=== PATIENT | female | born 1960 | race Two or more races ===

== ENCOUNTER 2017-02-07 03:26 | Emergency (ER) | payer MEDICARE, OTHER ==
[~2017-02-07] VITALS: Ht 162.6 cm; Wt 79.2 kg
[2017-02-07 03:32] VITALS: Ht 162.6 cm; Wt 79.2 kg
--- NOTE | 2017-02-07 04:28 | ERD ---
ER Documentation Chief Complaint Chief Complaint cough w/ chest congestion x 2 weeks,right breast.pain, body aches x 1 week HPI 56-year-old female presents emergency department for right-sided breast/chest pain cough, congestion for about 2 weeks. She also complains that she has generalized body aches for about a week. Denies headache, dizziness, blurry vision, changes in vision, neck pain, neck stiffness, difficulty swallowing, loss of appetite, difficulty breathing when lying flat, abdominal pain, nausea, vomiting, constipation, diarrhea, loss of bowel bladder control, urinary symptoms, changes in bowel bladder habits, recent travel, recent long travel, recent exposure to any illness, recent antibiotic use in the last 3 months, fever, chills, difficulty walking, trauma, injury, falls. Has past medical history of hypertension, hyperlipidemia, TIA. ROS All systems reviewed and are negative except as per history of present illness. Medications Home Meds Active Scripts Prednisone* (Prednisone*) 20 Mg Tab, 40 MG PO DAILY for 5 Days, TAB Prov:ARIAMARGARITABRADYSANTOSH Barnard 02/07/17 Acetaminophen* (Tylophen*) 500 Mg Capsule, 1 CAP PO Q6H Y for PAIN AND OR ELEVATED TEMP, #20 CAP Prov:ANATOLIYELIZABETHPAOLA 02/07/17 Albuterol Sulfate* (Proair HFA*) 8.5 Gm Hfa.aer.ad, 2 PUFF INH Q4, #1 INHALER Prov:ANATOLIYELIZABETHPAOLA 02/07/17 Azithromycin* (Zithromax*) 250 Mg Tablet, 250 MG PO .ZPACK DIRECTED, #6 TAB TAKE 500 MG (2 TABS) THE FIRST DAY THEN 250 MG (1 TAB) DAYS 2-5 Prov:ANATOLIYELIZABETHPAOLA 02/07/17 Allergies Allergies: Coded Allergies: No Known Allergy (Unverified , 02/07/17) PMhx/Soc History of Surgery: Yes (Vocal Cord Surg) Anesthesia Reaction: No Hx Neurological Disorder: No Hx Respiratory Disorders: No Hx Cardiac Disorders: Yes (HTN) Hx Psychiatric Problems: No Hx Miscellaneous Medical Probl: No Hx Alcohol Use: No Hx Substance Use: No Hx Tobacco Use: Yes (10 sticks/day) Smoking Status: Current every day smoker Physical Exam Vitals Vital Signs Date Time Temp Pulse Resp B/P Pulse Ox O2 Delivery O2 Flow Rate FiO2 02/07/17 03:32 98.8 74 20 162/82 98 Physical Exam Const: Well-appearing. Not in acute respiratory distress. Head: Atraumatic Eyes: Normal Conjunctiva. ENT: Normal External Ears, Nose and Mouth. Neck: Full range of motion..~ No meningismus. Resp: Clear to auscultation bilaterally. No crepitus. Cardio: Regular rate and rhythm, no murmurs Abd: Soft, non tender, non distended. Normal bowel sounds Skin: No petechiae or rashes. No vesicular lesions to chest and back. Examined with female vice president & general manager [employer] [place], Renee TERESA. Back: No midline or flank tenderness Ext: No cyanosis, or edema Neur: Awake and alert 4. No facial droop. Cranial nerves II through XII are intact. Romberg test is negative. No neurological deficits. Psych: Normal Mood and Affect Result Diagram: 02/07/1742402/07/17424 Results 24 hrs Laboratory Tests Test 02/07/17 04:25 White Blood Count 9.110^3/ul Red Blood Count 4.1310^6/ul Hemoglobin 12.6g/dl Hematocrit 36.2% Mean Corpuscular Volume 87.7fl Mean Corpuscular Hemoglobin 30.5pg Mean Corpuscular Hemoglobin Concent 34.8g/dl Red Cell Distribution Width 12.9% Platelet Count 69790^3/UL Mean Platelet Volume 10.1fl Neutrophils % 48.8% Lymphocytes % 41.7% Monocytes % 6.3% Eosinophils % 2.6% Basophils % 0.5% Nucleated Red Blood Cells % 0.0/100WBC Neutrophils # 4.510^3/ul Lymphocytes # 3.810^3/ul Monocytes # 0.610^3/ul Eosinophils # 0.210^3/ul Basophils # 0.110^3/ul Nucleated Red Blood Cells # 0.010^3/ul Prothrombin Time 13.1Sec Prothrombin Time Ratio 1.0 INR International Normalized Ratio 0.98 Activated Partial Thromboplast Time 28.1Sec Sodium Level 142mmol/L Potassium Level 3.5mmol/L Chloride Level 103mmol/L Carbon Dioxide Level 25mmol/L Anion Gap 18 Blood Urea Nitrogen 14mg/dl Creatinine 0.63mg/dl Glucose Level 100mg/dl Calcium Level 9.4mg/dl Total Bilirubin 0.2mg/dl Direct Bilirubin 0.00mg/dl Indirect Bilirubin 0.2mg/dl Aspartate Amino Transf (AST/SGOT) 26IU/L Alanine Aminotransferase (ALT/SGPT) 42IU/L Alkaline Phosphatase 65IU/L Troponin I < 0.012ng/ml Total Protein 7.4g/dl Albumin 4.5g/dl Globulin 2.90g/dl Albumin/Globulin Ratio 1.55 Amylase Level 88U/L Lipase 172U/L Procedures/MDM EKG: Normal sinus rhythm. No STEMI. Read by supervising physician, Dr. Joanne Stover. Chest x-ray: No evidence for acute cardiopulmonary disease. Blood works: Negative. Troponin: Negative. Differential: I have low suspicion for acute myocardial infarction, acute coronary syndrome, abdominal aortic aneurysm, shingles due to patient's presentation, description of pain, my physical examination, diagnostic test results Final diagnosis: Bronchitis. Prescription: Azithromycin. Prednisone. Pro-air. Tylenol. Follow-up with PCP in the next 3-4 days. Come back here in the emergency department for any new symptoms or any worsening symptoms. All questions and concerns are answered. Patient and family member verbalized understanding and agreed with the plan of care. Hemodynamically stable on discharge. Departure Diagnosis: Primary Impression: Acute bronchitis Condition: Stable Additional Instructions: Follow-up with PCP in the next 3-4 days. Come back here in the emergency department for any new symptoms or any worsening symptoms. All questions and concerns are answered. Patient and family member verbalized understanding and agreed with the plan of care. PAOLA SIMENTAL Feb 07, 2017 04:28
[2017-02-07 04:51] LABS: BASOPHIL # 0.1 10^3/ul (0.0-0.1); BASOPHILS % 0.5 % (0.0-2.0); EOSINOPHILS # 0.2 10^3/ul (0.0-0.5); EOSINOPHILS % 2.6 % (0.0-7.0); HEMATOCRIT 36.2 % (37.0-47.0); HEMOGLOBIN 12.6 g/dl (12.0-16.0); LYMPHOCYTES # 3.8 10^3/ul (0.8-2.9); LYMPHOCYTES % 41.7 % (15.0-51.0); MEAN CORPUSCULAR HEMOGLOBIN 30.5 pg (29.0-33.0); MEAN CORPUSCULAR HGB CONC 34.8 g/dl (32.0-37.0); MEAN CORPUSCULAR VOLUME 87.7 fl (82.0-101.0); MEAN PLATELET VOLUME 10.1 fl (7.4-10.4); MONOCYTE # 0.6 10^3/ul (0.3-0.9); MONOCYTES % 6.3 % (0.0-11.0); NEUTROPHIL # 4.5 10^3/ul (1.6-7.5); NEUTROPHILS % 48.8 % (39.0-77.0); PLATELET COUNT 283 10^3/UL (140-415); RED BLOOD COUNT 4.13 10^6/ul (4.20-5.40); RED CELL DISTRIBUTION WIDTH 12.9 % (11.5-14.5); WHITE BLOOD COUNT 9.1 10^3/ul (4.8-10.8)
--- NOTE | 2017-02-07 04:56 | RADRPT ---
PROCEDURE: XR Chest. CLINICAL INDICATION: Shortness of breath TECHNIQUE: PA and Lateral views of the chest were obtained. COMPARISON: There are no similar studies submitted for comparison. FINDINGS: There is mild cardiomegaly. The lungs are clear without evidence of infiltrate. There is no pleural effusion. No pneumothorax is identified. The osseous structures are intact. IMPRESSION: No evidence for acute cardiopulmonary disease. RPTAT: HIKT .Angelo Mello MD, MD Date Time Electronically viewed and signed by .Angelo Mello MD, MD on 02/07/2017 04:55 .T/
[2017-02-07 05:11] LABS: INR 0.98; PROTIME 13.1 Sec (11.9-14.9)
[2017-02-07 05:12] LABS: PARTIAL THROMBOPLASTIN TIME 28.1 Sec (25.0-35.0)
[2017-02-07 05:16] LABS: ALANINE AMINOTRANSFERASE 42 IU/L (13-69); ALBUMIN 4.5 g/dl (3.3-4.9); ALBUMIN/GLOBULIN RATIO 1.55; ALKALINE PHOSPHATASE 65 IU/L (42-121); AMYLASE 88 U/L (11-123); ANION GAP 18 (8-16); ASPARTATE AMINO TRANSFERASE 26 IU/L (15-46); BILIRUBIN,INDIRECT 0.2 mg/dl (0-1.1); BILIRUBIN,TOTAL 0.2 mg/dl (0.2-1.3); BLOOD UREA NITROGEN 14 mg/dl (7-20); CALCIUM 9.4 mg/dl (8.4-10.2); CARBON DIOXIDE 25 mmol/L (21-31); CHLORIDE 103 mmol/L (97-110); CREATININE 0.63 mg/dl (0.44-1.00); GLUCOSE 100 mg/dl (70-220); POTASSIUM 3.5 mmol/L (3.5-5.1); SODIUM 142 mmol/L (135-144); TOTAL PROTEIN 7.4 g/dl (6.1-8.1)
[2017-02-07 05:41] LABS: TROPONIN-I < 0.012 ng/ml (0.00-0.12)
[2017-02-07] MEDS ORDERED: ALBU8.5H3 INH (05:41)
[2017-02-07] MEDS ORDERED: ACET500C5 PO (05:41)
[2017-02-07] MEDS ORDERED: AZIT250T94 PO (05:41)
[2017-02-07] MEDS ORDERED: PRED20TA PO (05:42)
== END 2017-02-07 06:00 | disposition left against medical advice (07) ==
LOC: FTE 03:26
DX: J20.9 Acute bronchitis, unspecified (principal); I10 Essential (primary) hypertension; F17.210 Nicotine dependence, cigarettes, uncomplicated; R06.02 Shortness of breath
CPT/HCPCS: 36415; 71020; 80053; 82150; 83690; 84484; 85025; 85610; 85730; 93005